=== PATIENT | female | born 1950 | race Asian ===

== ENCOUNTER 2023-08-02 08:57 | Outpatient (CLI) | payer MEDICARE, MEDICAID ==
[2023-08-02 12:53] LABS: BASOPHILS # (AUTO) 0.1 10^3/uL (0.0-0.1); BASOPHILS % (AUTO) 1.2 %; EOSINOPHILS # (AUTO) 0.4 10^3/uL (0.0-0.7); EOSINOPHILS % (AUTO) 5.6 %; HCT - HEMATOCRIT 37.1 % (37.0-47.0); HGB - HEMOGLOBIN 10.8 g/dL (12.0-16.0); LYMPHOCYTES # (AUTO) 2.2 10^3/uL (1.5-3.5); LYMPHOCYTES % (AUTO) 31.9 %; MEAN CORPUSCULAR HEMOGLOBIN 19.1 pg (27.0-31.0); MEAN CORPUSCULAR HGB CONC 29.1 g/dL (32.0-36.0); MEAN CORPUSCULAR VOLUME 65.5 fL (81.0-99.0); MEAN PLATELET VOLUME 9.2 fL (7.9-10.8); MONOCYTES # (AUTO) 0.6 10^3/uL (0.0-1.0); MONOCYTES % (AUTO) 8.1 %; NEUTROPHILS # (AUTO) 3.7 10^3/uL (1.5-6.6); NEUTROPHILS % (AUTO) 53.1 %; PLT - PLATELET COUNT 326 10^3/uL (130-450); RED BLOOD COUNT 5.66 10^6/uL (4.20-5.40); RED CELL DISTRIBUTION WIDTH 15.2 % (12.0-15.0); WHITE BLOOD COUNT 6.9 x10^3/uL (4.8-10.8)
[2023-08-02 13:13] LABS: SLIDE REVIEW? Indicated
[2023-08-02 13:24] LABS: ALBUMIN 4.6 g/dL (3.2-5.5); ALBUMIN/GLOBULIN RATIO 1.4 (1.0-2.2); ALKALINE PHOSPHATASE 83 IU/L (42-121); ALT ALANINE AMINOTRANSFERASE 10 IU/L (10-60); AST ASPARTATE AMINOTRANSFERASE 14 IU/L (10-42); BILIRUBIN,TOTAL 0.6 mg/dL (0.2-1.0); BUN - BLOOD UREA NITROGEN 15 mg/dL (6-20); CARBON DIOXIDE - CO2 28 mmol/L (21-32); CHLORIDE 99 mmol/L (101-111); CHOL/HDL RATIO 4.5 (<4.4); CHOLESTEROL 276 mg/dL; GFR - MDRD 54 (>89); GLUCOSE 98 mg/dL (74-104); HDL CHOLESTEROL 62 mg/dL; LDL CHOLESTEROL,CALCULATED 175 mg/dL; LDL/HDL RATIO 2.8 (<4.4); POTASSIUM 3.5 mmol/L (3.5-4.5); SODIUM 137 mmol/L (135-145); TOTAL PROTEIN 7.9 g/dL (6.4-8.9); TRIGLYCERIDES 194 mg/dL (48-352); VLDL CHOLESTEROL 39 mg/dL
[2023-08-02 13:31] LABS: RBC MORPHOLOGY (MULTIPLE) 2+ MICROCYTOSIS (NORMAL)
[2023-08-02 13:40] LABS: ESTIMATED AVERAGE GLUCOSE 134 mg/dL (70-100); HEMOGLOBIN A1c% 6.3 % (4.27-6.07)
== END 2023-08-02 08:58 | disposition home or self-care (01) ==
LOC: LAB.N 08:57
PROVIDERS: ATTEND Family Medicine
DX: I35.0 Nonrheumatic aortic (valve) stenosis (principal); I10 Essential (primary) hypertension; I51.7 Cardiomegaly
CPT/HCPCS: 36415; 80053; 80061; 83036; 83721; 84443; 85025

== ENCOUNTER 2023-12-20 11:27 | Day surgery (SDC) | payer MEDICARE, MEDICAID ==
[2023-12-20] MEDS: LACTATED RINGERS 1,000 ML IV ONE (11:29)
[2023-12-20] MEDS ORDERED: PROPOFOL 500 MG/50 ML 500 MG/50 ML VIAL ONE (12:11)
--- NOTE | 2023-12-20 13:14 | ANESTHESIA ---
Pre-Anesthesia VS, & Labs - Diagnosis hx polyps - Procedure colonoscopy Vital Signs: Temp Pulse Resp BP Pulse Ox O2 Flow Rate 36.6 C 65 18 156/71 H 99 12/20/23 11:34 12/20/23 11:34 12/20/23 11:34 12/20/23 11:34 12/20/23 11:34 Height: 5 ft Weight (kg): 49.5 kg Body Mass Index: 21.3 BMI Classification: Normal - NPO >8 hours Last Fluid Intake: am prep - Is Patient ?: No - Lab Results Lab results reviewed: Yes Home Medications and Allergies Home Medications: Ambulatory Orders Albuterol Sulf [Ventolin Hfa Inhaler] 1 - 2 puffs INH Q4HR PRN 12/13/23 Amlodipine Besylate [Norvasc] 10 mg PO DAILY 12/13/23 Ciclesonide [Alvesco] 2 puffs IH DAILY 12/13/23 Losartan [Cozaar] 50 mg PO DAILY 12/13/23 carvediloL [Coreg] 6.25 mg PO BID 12/13/23 Albuterol Sulf [Ventolin Hfa Inhaler] 1 - 2 puffs INH Q4HR PRN 12/13/23 Amlodipine Besylate [Norvasc] 10 mg PO DAILY 12/13/23 Ciclesonide [Alvesco] 2 puffs IH DAILY 12/13/23 Losartan [Cozaar] 50 mg PO DAILY 12/13/23 carvediloL [Coreg] 6.25 mg PO BID 12/13/23 Allergies/Adverse Reactions: Allergies Allergy/AdvReac Type Severity Reaction Status Date / Time No Known Drug Allergies Allergy Verified 12/13/23 07:05 Anes History & Medical History - Anesthetic History Anesthesia Complications: reports: No previous complications Family history of Anesthesia Complications: Denies Family history of Malignant Hyperthermia: Denies - Medical History Cardiovascular: reports: Hypertension, High cholesterol, Murmur, Other (Moderate aortic stenosis, LVOT obstruction. Cleared by cardiology for colonsocopy.) Pulmonary: reports: Asthma Gastrointestinal: reports: Colon polyps, Hemorrhoids Urinary: reports: None Musculoskeletal: reports: None Endocrine/Autoimmune: reports: Other Skin: reports: None Psychosocial: reports: No issues indicated History of Cancer?: No - Surgical History General: reports: Colonoscopy, Other Eyes Ears Nose Throat (EENT): reports: Cataracts Exam General: Alert, Oriented x3, Cooperative Dental: WNL Mouth Opening: Greater than 4 Fingerbreadths Neck Mobility: Normal Mallampati classification: I Thyromental Distance: 4-6 cm Respiratory: Lungs clear, Normal breath sounds, No respiratory distress Cardiovascular: Regular rate Neurological: Normal speech Mental/Cognitive Status: Alert/Oriented X3, Normal for patient Cognitive Status: Within normal limits Plan Anesthesia Type: Total IV Consent for Procedure(s) Verified and Reviewed: Yes Code Status: Attempt Resuscitation ASA classification: 3-Severe systemic disease Is this case an emergency?: No
[2023-12-20] MEDS: SIMETHICONE 40 MG/0.6 ML 30 ML BOTTLE PO ONE (13:40)
[2023-12-20] MEDS: LACTATED RINGERS 400 ML IV ONE (13:55)
[2023-12-20 14:25] VITALS: BP 142/55; O2SAT 100
--- NOTE | 2023-12-20 18:54 | ANESTHESIA POST OP EVALUATION ---
Anesthesia Post Eval - Post Anesthesia Eval Vitals: Last Vital Signs Temp 36.5 C 12/20/23 14:20 Pulse 59 L 12/20/23 14:20 Resp 15 12/20/23 14:20 BP 142/55 H 12/20/23 14:20 Pulse Ox 100 12/20/23 14:20 O2 Flow Rate CV Function Including HR & BP: Stable Pain Control: Satisfactory Nausea & Vomiting: Negative Mental Status: Baseline Respiratory Status: Airway Patent Hydration Status: Satisfactory Anesthesia Complications: None
== END 2023-12-20 11:28 | disposition home or self-care (01) ==
LOC: SDS 11:27
PROVIDERS: ATTEND Surgery
DX: Z12.11 Encounter for screening for malignant neoplasm of colon (principal); K57.30 Diverticulosis of large intestine without perforation or abscess without bleeding; I35.0 Nonrheumatic aortic (valve) stenosis; D64.9 Anemia, unspecified; I10 Essential (primary) hypertension; E78.5 Hyperlipidemia, unspecified; Z86.010 Personal history of colon polyps; J45.909 Unspecified asthma, uncomplicated
CPT/HCPCS: A9270; G0105; J7120